=== PATIENT | female | born 1990 | race American Indian/Alaskan Native ===

== ENCOUNTER 2018-10-27 17:18 | Emergency (ER) | payer OTHER ==
[2018-10-27] MEDS ORDERED: DTap Vaccine 0.5 ml Vial IM ONE (17:35)
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
[2018-10-27] MEDS ORDERED: Tetanus/Diphtheria Toxoids 0.5 ml Syringe IM ONE ×2 (17:46→18:16)
[2018-10-27 18:06] VITALS: O2SAT 98; BMI 30.2
[2018-10-27 18:58] VITALS: BP 124/90; PULSE 86; RESP 20; TEMP 99
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
== END 2018-10-27 19:37 | disposition home or self-care (01) ==
LOC: C.ER 17:18
DX: S00.11XA Contusion of right eyelid and periocular area, initial encounter (principal); S00.81XA Abrasion of other part of head, initial encounter; S00.01XA Abrasion of scalp, initial encounter; Y04.0XXA Assault by unarmed brawl or fight, initial encounter; Y92.89 Other specified places as the place of occurrence of the external cause; Y99.0 Civilian activity done for income or pay